=== PATIENT | female | born 1930 | race Caucasian/White ===

== ENCOUNTER 2019-03-06 16:54 | Inpatient (IN) | payer MEDICAID, OTHER ==
[2019-03-06 17:43] LABS: ADD MAN DIFF? NO
[2019-03-06 17:47] LABS: BASOPHILS % 0.2 % (0.0-2.0); HEMATOCRIT 38.4 % (37.0-47.0); HEMOGLOBIN 12.4 g/dl (12.0-16.0); LYMPHOCYTES # 0.9 10^3/ul (0.8-2.9); LYMPHOCYTES % 8.5 % (15.0-51.0); MEAN CORPUSCULAR HEMOGLOBIN 28.4 pg (29.0-33.0); MEAN CORPUSCULAR HGB CONC 32.3 g/dl (32.0-37.0); MEAN CORPUSCULAR VOLUME 88.1 fl (82.0-101.0); MEAN PLATELET VOLUME 9.8 fl (7.4-10.4); MONOCYTE # 0.5 10^3/ul (0.3-0.9); MONOCYTES % 4.4 % (0.0-11.0); NEUTROPHIL # 9.3 10^3/ul (1.6-7.5); NEUTROPHILS % 86.2 % (39.0-77.0); PLATELET COUNT 305 10^3/UL (140-415); RED BLOOD COUNT 4.36 10^6/ul (4.20-5.40); RED CELL DISTRIBUTION WIDTH 14.5 % (11.5-14.5)
[2019-03-06 17:47] LABS: WHITE BLOOD COUNT 10.8 10^3/ul (4.8-10.8)
[2019-03-06] MEDS: LIDOCAINE/MYLANTA 40 ML BTL PO (17:49)
[2019-03-06] MEDS: morphine 2 MG INJ IV (17:50)
[2019-03-06] MEDS: ONDANSETRON 4 MG INJ IV (17:50)
[2019-03-06] MEDS: SOD CHLORIDE 0.9% 500 ML IV (17:56)
[2019-03-06 18:09] LABS: ALANINE AMINOTRANSFERASE 422 IU/L (13-69); ALBUMIN 4.6 g/dl (3.3-4.9); ALBUMIN/GLOBULIN RATIO 1.02; ALKALINE PHOSPHATASE 353 IU/L (42-121); ANION GAP 15 (5-13); BILIRUBIN,INDIRECT 1.1 mg/dl (0-1.1); BLOOD UREA NITROGEN 16 mg/dl (7-20); CALCIUM 9.8 mg/dl (8.4-10.2); CARBON DIOXIDE 25 mmol/L (21-31); CHLORIDE 101 mmol/L (97-110); CREATININE 1.01 mg/dl (0.44-1.00); GLUCOSE 196 mg/dl (70-220); LIPASE 276 U/L (23-300); POTASSIUM 4.9 mmol/L (3.5-5.1); SODIUM 141 mmol/L (135-144); TOTAL PROTEIN 9.1 g/dl (6.1-8.1)
[2019-03-06 18:19] LABS: ASPARTATE AMINO TRANSFERASE 1093 IU/L (15-46)
[2019-03-06] MEDS ORDERED: ACETAMINOPHEN 325 MG TAB PO (19:00)
[2019-03-06] MEDS ORDERED: ONDANSETRON 4 MG INJ IV ×2 (19:00→21:00)
[2019-03-06] MEDS ORDERED: NACL 0.9% 3 ML SYG IV (21:00)
[2019-03-06] MEDS: DEXTROSE 5%-0.45% NACL 1,000 ML IV (22:55)
[2019-03-06] MEDS: PIPER-TAZO 3.375 GM IV (PMX) 100 ML IVPB (22:55)
[2019-03-06] MEDS: FAMOTIDINE 20 MG INJ IV (22:56)
[2019-03-07] MEDS: PIPER-TAZO 3.375 GM IV (PMX) 100 ML IVPB ×3 (05:31→21:10)
[2019-03-07 06:33] LABS: ABNORMAL IP MESSAGE 1; HEMATOCRIT 32.8 % (37.0-47.0); HEMOGLOBIN 10.7 g/dl (12.0-16.0); MEAN CORPUSCULAR HEMOGLOBIN 28.6 pg (29.0-33.0); MEAN CORPUSCULAR HGB CONC 32.6 g/dl (32.0-37.0); MEAN CORPUSCULAR VOLUME 87.7 fl (82.0-101.0); MEAN PLATELET VOLUME 10.3 fl (7.4-10.4); PLATELET COUNT 162 10^3/UL (140-415); RED BLOOD COUNT 3.74 10^6/ul (4.20-5.40); RED CELL DISTRIBUTION WIDTH 14.3 % (11.5-14.5)
[2019-03-07 06:33] LABS: WHITE BLOOD COUNT 13.7 10^3/ul (4.8-10.8)
[2019-03-07 06:41] LABS: ALANINE AMINOTRANSFERASE 380 IU/L (13-69); ALBUMIN 3.4 g/dl (3.3-4.9); ALKALINE PHOSPHATASE 237 IU/L (42-121); ANION GAP 14 (5-13); ASPARTATE AMINO TRANSFERASE 674 IU/L (15-46); BILIRUBIN,INDIRECT 1.4 mg/dl (0-1.1); BLOOD UREA NITROGEN 21 mg/dl (7-20); CALCIUM 8.7 mg/dl (8.4-10.2); CARBON DIOXIDE 25 mmol/L (21-31); CHLORIDE 102 mmol/L (97-110); CREATININE 1.23 mg/dl (0.44-1.00); GLUCOSE 167 mg/dl (70-220); MAGNESIUM 1.9 mg/dl (1.7-2.5); PHOSPHORUS 3.3 mg/dl (2.5-4.9); POTASSIUM 3.1 mmol/L (3.5-5.1); SODIUM 141 mmol/L (135-144); TOTAL PROTEIN 6.8 g/dl (6.1-8.1)
[2019-03-07 06:46] LABS: ADD MAN DIFF? YES; POSITIVE DIFF @See below
[2019-03-07 09:04] LABS: ANISOCYTOSIS 2+ (0-0); BAND NEUTROPHILS #M 5.6 10^3/ul (0.0-0.6); BAND NEUTROPHILS % (M) 41 % (0-4); GIANT THROMBO% (M) 1 % (0-0); LYMPHOCYTES #M 0.8 10^3/ul (0.8-2.9); LYMPHOCYTES % (M) 6 % (15-51); METAMYELOCYTES #M 0.2 10^3/ul (0.0-0.0); METAMYELOCYTES %M 2 % (0-0); MICROCYTOSIS 2+ (0-0); MONOCYTE #M 0.1 10^3/ul (0.3-0.9); MONOCYTES % (M) 1 % (0-11); PLATELET ESTIMATE NORMAL; POLYCHROMASIA 3+ (0-0); SEG NEUT #M 7.6 10^3/ul (1.6-7.5); SEGMENTED NEUTROPHILS (M) % 50 % (39-77)
[2019-03-07] MEDS: DEXTROSE 5%-0.45% NACL 1,000 ML IV ×2 (12:46→21:11)
[2019-03-07] MEDS ORDERED: IOHEXOL 300MG/ML 30 ML BTL (16:26)
[2019-03-07] MEDS: INDOMETHACIN 50 MG SUPP PR (16:30)
[2019-03-07] MEDS ORDERED: INDOMETHACIN 50 MG SUPP PR (17:00)
[2019-03-07] MEDS ORDERED: ETOMIDATE 20 MG INJ (17:40)
[2019-03-07] MEDS ORDERED: SUCCINYLCHOLINE CHLORIDE 100 MG/5 ML SYG IV (17:40)
[2019-03-07] MEDS ORDERED: morphine 10 MG INJ (17:41)
[2019-03-07] MEDS ORDERED: ONDANSETRON 4 MG INJ (17:48)
[2019-03-07] MEDS ORDERED: DEXAMETHASONE 4 MG/ML 5 ML INJ (17:48)
[2019-03-07] MEDS ORDERED: CEFAZOLIN 1 GM INJ (17:50)
[2019-03-07] MEDS ORDERED: ONDANSETRON 4 MG INJ IV (18:30)
[2019-03-07] MEDS ORDERED: DIPHENHYDRAMINE 50 MG INJ IV (18:30)
[2019-03-07] MEDS ORDERED: FENTAnyl 50 MCG/ML VIAL IV ×3 (18:30)
[2019-03-07] MEDS ORDERED: MEPERIDINE 25 MG INJ IV (18:30)
[2019-03-07] MEDS ORDERED: hydrALAzine 20 MG INJ IV (18:30)
[2019-03-07] MEDS ORDERED: HYDROmorphONE 1 MG/5 ML IV SYRINGE IV ×3 (18:30)
[2019-03-07] MEDS ORDERED: LABETALOL HCL 20MG INJ IV (18:30)
[2019-03-07] MEDS ORDERED: OXYCODONE/ACETAMINOPHEN (5/325) TAB PO ×2 (18:30)
[2019-03-07] MEDS ORDERED: TRIMETHOBENZAMIDE 100 MG/ML VIAL IM (18:30)
[2019-03-07] MEDS ORDERED: ALBUTEROL 0.083% (NEB) 2.5 MG/3 ML AMP HHN (18:30)
[2019-03-07] MEDS ORDERED: IPRATROPIUM (NEB) 0.5 MG/2.5 ML AMP HHN (18:30)
[2019-03-07] MEDS ORDERED: MIDAZOLAM 1 MG/ML 2 ML INJ IV (18:30)
[2019-03-07] MEDS ORDERED: EPHEDrine 25 MG/5 ML SYG IV (18:30)
[2019-03-07] MEDS: FAMOTIDINE 20 MG INJ IV (21:11)
[2019-03-07] MEDS: HEPARIN 5,000 UNIT/1 ML VIAL SC (21:20)
[2019-03-08] MEDS: PIPER-TAZO 3.375 GM IV (PMX) 100 ML IVPB ×3 (05:41→21:26)
[2019-03-08] MEDS: DEXTROSE 5%-0.45% NACL 1,000 ML IV ×3 (05:46→21:27)
[2019-03-08] MEDS: HEPARIN 5,000 UNIT/1 ML VIAL SC ×2 (08:55→20:56)
[2019-03-08] MEDS: FAMOTIDINE 20 MG INJ IV (20:54)
[2019-03-09 01:49] LABS: ANION GAP 11 (5-13); BLOOD UREA NITROGEN 34 mg/dl (7-20); CALCIUM 7.9 mg/dl (8.4-10.2); CARBON DIOXIDE 22 mmol/L (21-31); CHLORIDE 108 mmol/L (97-110); CREATININE 1.68 mg/dl (0.44-1.00); GLUCOSE 184 mg/dl (70-220); SODIUM 141 mmol/L (135-144)
[2019-03-09] MEDS: PIPER-TAZO 3.375 GM IV (PMX) 100 ML IVPB ×3 (06:01→21:46)
[2019-03-09 06:17] LABS: ADD MAN DIFF? NO
[2019-03-09 06:23] LABS: BASOPHILS % 0.1 % (0.0-2.0); HEMATOCRIT 28.8 % (37.0-47.0); HEMOGLOBIN 9.5 g/dl (12.0-16.0); LYMPHOCYTES # 1.1 10^3/ul (0.8-2.9); LYMPHOCYTES % 9.3 % (15.0-51.0); MEAN CORPUSCULAR HEMOGLOBIN 28.8 pg (29.0-33.0); MEAN CORPUSCULAR VOLUME 87.3 fl (82.0-101.0); MEAN PLATELET VOLUME 11.5 fl (7.4-10.4); MONOCYTE # 0.4 10^3/ul (0.3-0.9); MONOCYTES % 2.9 % (0.0-11.0); NEUTROPHIL # 10.1 10^3/ul (1.6-7.5); NEUTROPHILS % 84.4 % (39.0-77.0); PLATELET COUNT 117 10^3/UL (140-415); RED CELL DISTRIBUTION WIDTH 14.8 % (11.5-14.5)
[2019-03-09 07:03] LABS: ANION GAP 9 (5-13); BLOOD UREA NITROGEN 33 mg/dl (7-20); CALCIUM 7.9 mg/dl (8.4-10.2); CARBON DIOXIDE 23 mmol/L (21-31); CHLORIDE 109 mmol/L (97-110); CREATININE 1.78 mg/dl (0.44-1.00); GLUCOSE 179 mg/dl (70-220); POTASSIUM 3.8 mmol/L (3.5-5.1); SODIUM 141 mmol/L (135-144)
[2019-03-09] MEDS: HEPARIN 5,000 UNIT/1 ML VIAL SC ×2 (07:44→20:40)
[2019-03-09 10:27] LABS: ALANINE AMINOTRANSFERASE 128 IU/L (13-69); ALKALINE PHOSPHATASE 135 IU/L (42-121); ASPARTATE AMINO TRANSFERASE 69 IU/L (15-46); BILIRUBIN,INDIRECT 0.5 mg/dl (0-1.1); BILIRUBIN,TOTAL 0.5 mg/dl (0.2-1.3)
[2019-03-09 10:28] LABS: ALBUMIN 2.9 g/dl (3.3-4.9); TOTAL PROTEIN 5.7 g/dl (6.1-8.1)
[2019-03-09] MEDS: DEXTROSE 5%-0.45% NACL 1,000 ML IV ×2 (11:30→23:24)
[2019-03-09] MEDS: FAMOTIDINE 20 MG INJ IV (20:37)
[2019-03-10] MEDS: PIPER-TAZO 3.375 GM IV (PMX) 100 ML IVPB (06:00)
[2019-03-10 06:48] LABS: ADD MAN DIFF? NO
[2019-03-10 06:59] LABS: BASOPHILS % 0.2 % (0.0-2.0); HEMATOCRIT 28.5 % (37.0-47.0); HEMOGLOBIN 9.4 g/dl (12.0-16.0); LYMPHOCYTES # 1.6 10^3/ul (0.8-2.9); LYMPHOCYTES % 11.1 % (15.0-51.0); MEAN CORPUSCULAR HEMOGLOBIN 28.7 pg (29.0-33.0); MEAN CORPUSCULAR VOLUME 87.2 fl (82.0-101.0); MEAN PLATELET VOLUME 11.9 fl (7.4-10.4); MONOCYTE # 0.4 10^3/ul (0.3-0.9); MONOCYTES % 2.9 % (0.0-11.0); NEUTROPHIL # 11.9 10^3/ul (1.6-7.5); NEUTROPHILS % 84.6 % (39.0-77.0); NUCLEATED RED BLOOD CELLS% 0.1 /100WBC (0.0-0.0); PLATELET COUNT 132 10^3/UL (140-415); RED BLOOD COUNT 3.27 10^6/ul (4.20-5.40)
[2019-03-10 06:59] LABS: WHITE BLOOD COUNT 14.1 10^3/ul (4.8-10.8)
[2019-03-10 07:43] LABS: ANION GAP 9 (5-13); BLOOD UREA NITROGEN 33 mg/dl (7-20); CALCIUM 7.9 mg/dl (8.4-10.2); CARBON DIOXIDE 21 mmol/L (21-31); CHLORIDE 110 mmol/L (97-110); CREATININE 1.69 mg/dl (0.44-1.00); GLUCOSE 134 mg/dl (70-220); POTASSIUM 3.5 mmol/L (3.5-5.1); SODIUM 140 mmol/L (135-144)
[2019-03-10] MEDS: HEPARIN 5,000 UNIT/1 ML VIAL SC ×2 (08:26→20:47)
[2019-03-10 11:58] LABS: ADD UMIC YES; UR ASCORBIC ACID NEGATIVE (NEGATIVE); UR BILIRUBIN (Dip) NEGATIVE (NEGATIVE); UR BLOOD (Dip) 2+ mg/dL (NEGATIVE); UR CLARITY SLIGHTLY CLOUDY (CLEAR); UR COLOR YELLOW (YELLOW); UR GLUCOSE (Dip) NEGATIVE (NEGATIVE); UR KETONES (Dip) NEGATIVE (NEGATIVE); UR LEUKOCYTE ESTERASE (Dip) NEGATIVE Leu/ul (NEGATIVE); UR MUCUS FEW /HPF (NONE SEEN); UR NITRITE (Dip) NEGATIVE (NEGATIVE); UR RBC 0 /HPF (0-5); UR SPECIFIC GRAVITY (Dip) 1.012 (1.003-1.030); UR SQUAMOUS EPITHELIAL CELL MODERATE /HPF (FEW); UR TOTAL PROTEIN (Dip) 1+ mg/dl (NEGATIVE); UR UROBILINOGEN (Dip) NEGATIVE (NEGATIVE); UR WBC 2 /HPF (0-5)
[2019-03-10 12:15] LABS: SODIUM,URINE RANDOM 80 mmol/L (30-90)
[2019-03-10 12:15] LABS: CREATININE,URINE RANDOM 33.62 mg/dl (20-320)
[2019-03-10] MEDS: DEXTROSE 5%-0.45% NACL 1,000 ML IV (12:41)
[2019-03-10 13:38] LABS: ADD UMIC YES; UR ASCORBIC ACID NEGATIVE (NEGATIVE); UR BACTERIA FEW /HPF (NONE SEEN); UR BILIRUBIN (Dip) NEGATIVE (NEGATIVE); UR BLOOD (Dip) 1+ mg/dL (NEGATIVE); UR CLARITY CLEAR (CLEAR); UR COLOR YELLOW (YELLOW); UR GLUCOSE (Dip) NEGATIVE (NEGATIVE); UR KETONES (Dip) NEGATIVE (NEGATIVE); UR LEUKOCYTE ESTERASE (Dip) NEGATIVE Leu/ul (NEGATIVE); UR NITRITE (Dip) NEGATIVE (NEGATIVE); UR RBC 1 /HPF (0-5); UR SPECIFIC GRAVITY (Dip) 1.009 (1.003-1.030); UR SQUAMOUS EPITHELIAL CELL FEW /HPF (FEW); UR TOTAL PROTEIN (Dip) 1+ mg/dl (NEGATIVE); UR UROBILINOGEN (Dip) NEGATIVE (NEGATIVE); UR WBC 2 /HPF (0-5)
[2019-03-10] MEDS ORDERED: ACETAMINOPHEN 325 MG TAB PO (14:00)
[2019-03-10] MEDS: ACETAMINOPHEN 325 MG TAB PO (14:10)
[2019-03-10] MEDS: PIPER-TAZO 2.25 GM/NS 50 ML IVPB ×2 (14:55→22:03)
[2019-03-10] MEDS: FAMOTIDINE 20 MG INJ IV (20:45)
[2019-03-11] MEDS: DEXTROSE 5%-0.45% NACL 1,000 ML IV ×3 (00:55→12:27)
[2019-03-11 05:21] LABS: ADD MAN DIFF? NO
[2019-03-11 05:31] LABS: BASOPHILS % 0.3 % (0.0-2.0); EOSINOPHILS # 0.1 10^3/ul (0.0-0.5); HEMATOCRIT 30.4 % (37.0-47.0); HEMOGLOBIN 10.1 g/dl (12.0-16.0); LYMPHOCYTES # 1.9 10^3/ul (0.8-2.9); LYMPHOCYTES % 16.2 % (15.0-51.0); MEAN CORPUSCULAR HEMOGLOBIN 28.5 pg (29.0-33.0); MEAN CORPUSCULAR HGB CONC 33.2 g/dl (32.0-37.0); MEAN CORPUSCULAR VOLUME 85.9 fl (82.0-101.0); MEAN PLATELET VOLUME 11.4 fl (7.4-10.4); MONOCYTE # 0.7 10^3/ul (0.3-0.9); MONOCYTES % 5.8 % (0.0-11.0); NEUTROPHILS % 75.2 % (39.0-77.0); NUCLEATED RED BLOOD CELLS% 0.3 /100WBC (0.0-0.0); PLATELET COUNT 152 10^3/UL (140-415); RED BLOOD COUNT 3.54 10^6/ul (4.20-5.40); RED CELL DISTRIBUTION WIDTH 14.8 % (11.5-14.5)
[2019-03-11 05:31] LABS: WHITE BLOOD COUNT 11.9 10^3/ul (4.8-10.8)
[2019-03-11 05:54] LABS: ANION GAP 10 (5-13); BLOOD UREA NITROGEN 26 mg/dl (7-20); CALCIUM 8.1 mg/dl (8.4-10.2); CARBON DIOXIDE 22 mmol/L (21-31); CHLORIDE 109 mmol/L (97-110); CREATININE 1.74 mg/dl (0.44-1.00); GLUCOSE 86 mg/dl (70-220); SODIUM 141 mmol/L (135-144)
[2019-03-11 05:59] LABS: POTASSIUM 2.9 mmol/L (3.5-5.1)
[2019-03-11] MEDS: PIPER-TAZO 2.25 GM/NS 50 ML IVPB ×3 (06:08→22:10)
[2019-03-11] MEDS: POTASSIUM CHLORIDE 100 ML IVPB ×3 (07:41→12:27)
[2019-03-11] MEDS: HEPARIN 5,000 UNIT/1 ML VIAL SC ×2 (07:42→21:04)
[2019-03-11] MEDS: ALBUTEROL/IPRATROPIUM (NEB) 3 ML AMP HHN (13:45)
[2019-03-11] MEDS ORDERED: PROPOFOL 20 ML (14:57)
[2019-03-11] MEDS ORDERED: ROCURONIUM 50 MG INJ (14:57)
[2019-03-11] MEDS ORDERED: CEFAZOLIN 1 GM INJ (14:57)
[2019-03-11] MEDS ORDERED: ROPIVACAINE 0.2% 20 ML VIAL (14:58)
[2019-03-11] MEDS ORDERED: FENTAnyl 50 MCG/ML VIAL (14:58)
[2019-03-11] MEDS ORDERED: LIDOCAINE 1% (MPF) 30 ML INJ (15:08)
[2019-03-11] MEDS ORDERED: BUPIVACAINE 0.25%/EPI (SDV) 10 ML INJ (15:08)
[2019-03-11 15:51] LABS: CREATININE, RANDOM URINE 30 mg/dL (20-275); MICROALBUMIN 6.1 mg/dL; MICROALBUMIN/CREATININE RATIO 203 (<30)
[2019-03-11] MEDS ORDERED: hydrALAzine 20 MG INJ (16:18)
[2019-03-11] MEDS ORDERED: ONDANSETRON 4 MG INJ (16:28)
[2019-03-11] MEDS ORDERED: SUGAMMADEX SODIUM 200 MG/2 ML VIAL IV (16:28)
[2019-03-11] MEDS ORDERED: DEXAMETHASONE 4 MG/ML 5 ML INJ (16:28)
[2019-03-11] MEDS ORDERED: LABETALOL HCL 20MG INJ (16:29)
[2019-03-11] MEDS ORDERED: DIPHENHYDRAMINE 50 MG INJ IV (16:30)
[2019-03-11] MEDS ORDERED: HYDROmorphONE 1 MG/5 ML IV SYRINGE IV ×2 (16:30)
[2019-03-11] MEDS ORDERED: IPRATROPIUM (NEB) 0.5 MG/2.5 ML AMP HHN (16:30)
[2019-03-11] MEDS ORDERED: LABETALOL HCL 20MG INJ IV (16:30)
[2019-03-11] MEDS ORDERED: OXYCODONE/ACETAMINOPHEN (5/325) TAB PO (16:30)
[2019-03-11] MEDS ORDERED: MEPERIDINE 25 MG INJ IV (16:30)
[2019-03-11] MEDS ORDERED: FENTAnyl 50 MCG/ML VIAL IV ×2 (16:30)
[2019-03-11] MEDS ORDERED: ALBUTEROL 0.083% (NEB) 2.5 MG/3 ML AMP HHN (16:30)
[2019-03-11] MEDS ORDERED: hydrALAzine 20 MG INJ IV (16:30)
[2019-03-11] MEDS ORDERED: ONDANSETRON 4 MG INJ IV ×2 (16:30→17:30)
[2019-03-11] MEDS ORDERED: EPHEDrine 25 MG/5 ML SYG IV (16:30)
[2019-03-11] MEDS: D5W-0.45 NACL + KCL 20 MEQ 1,000 ML IV (18:29)
[2019-03-11] MEDS: morphine 2 MG INJ IV (18:38)
[2019-03-11] MEDS: FAMOTIDINE 20 MG INJ IV (21:03)
[2019-03-11] MEDS: HYDROmorphONE 0.5 MG/0.5 ML SYG IV (22:09)
[2019-03-12] MEDS: D5W-0.45 NACL + KCL 20 MEQ 1,000 ML IV ×2 (03:29→05:08)
[2019-03-12] MEDS: PIPER-TAZO 2.25 GM/NS 50 ML IVPB ×3 (06:04→21:50)
[2019-03-12 07:26] LABS: ADD MAN DIFF? NO
[2019-03-12 07:32] LABS: WHITE BLOOD COUNT 12.3 10^3/ul (4.8-10.8)
[2019-03-12 07:32] LABS: BASOPHILS % 0.2 % (0.0-2.0); HEMATOCRIT 29.2 % (37.0-47.0); HEMOGLOBIN 9.3 g/dl (12.0-16.0); LYMPHOCYTES % 8.3 % (15.0-51.0); MEAN CORPUSCULAR HEMOGLOBIN 28.1 pg (29.0-33.0); MEAN CORPUSCULAR HGB CONC 31.8 g/dl (32.0-37.0); MEAN CORPUSCULAR VOLUME 88.2 fl (82.0-101.0); MONOCYTE # 0.3 10^3/ul (0.3-0.9); MONOCYTES % 2.3 % (0.0-11.0); NEUTROPHIL # 10.6 10^3/ul (1.6-7.5); PLATELET COUNT 200 10^3/UL (140-415); RED BLOOD COUNT 3.31 10^6/ul (4.20-5.40); RED CELL DISTRIBUTION WIDTH 15.6 % (11.5-14.5)
[2019-03-12 08:00] LABS: PHOSPHORUS 3.2 mg/dl (2.5-4.9)
[2019-03-12 08:00] LABS: MAGNESIUM 2.1 mg/dl (1.7-2.5)
[2019-03-12 08:04] LABS: ALANINE AMINOTRANSFERASE 53 IU/L (13-69); ALBUMIN 2.8 g/dl (3.3-4.9); ALBUMIN/GLOBULIN RATIO 0.87; ALKALINE PHOSPHATASE 110 IU/L (42-121); ANION GAP 8 (5-13); ASPARTATE AMINO TRANSFERASE 62 IU/L (15-46); BILIRUBIN,INDIRECT 0.5 mg/dl (0-1.1); BILIRUBIN,TOTAL 0.5 mg/dl (0.2-1.3); BLOOD UREA NITROGEN 18 mg/dl (7-20); CALCIUM 7.2 mg/dl (8.4-10.2); CARBON DIOXIDE 17 mmol/L (21-31); CHLORIDE 114 mmol/L (97-110); CREATININE 1.33 mg/dl (0.44-1.00); GLUCOSE 163 mg/dl (70-220); POTASSIUM 4.5 mmol/L (3.5-5.1); SODIUM 139 mmol/L (135-144)
[2019-03-12] MEDS: HEPARIN 5,000 UNIT/1 ML VIAL SC ×2 (08:54→21:53)
[2019-03-12] MEDS: FAMOTIDINE 20 MG INJ IV (21:50)
[2019-03-13 05:24] LABS: ADD MAN DIFF? NO
[2019-03-13 05:33] LABS: BASOPHILS % 0.2 % (0.0-2.0); EOSINOPHILS % 0.1 % (0.0-7.0); HEMATOCRIT 25.5 % (37.0-47.0); HEMOGLOBIN 8.3 g/dl (12.0-16.0); LYMPHOCYTES # 1.2 10^3/ul (0.8-2.9); LYMPHOCYTES % 10.6 % (15.0-51.0); MEAN CORPUSCULAR HEMOGLOBIN 28.5 pg (29.0-33.0); MEAN CORPUSCULAR HGB CONC 32.5 g/dl (32.0-37.0); MEAN CORPUSCULAR VOLUME 87.6 fl (82.0-101.0); MEAN PLATELET VOLUME 10.7 fl (7.4-10.4); MONOCYTE # 0.9 10^3/ul (0.3-0.9); MONOCYTES % 7.6 % (0.0-11.0); NEUTROPHIL # 9.1 10^3/ul (1.6-7.5); NEUTROPHILS % 79.7 % (39.0-77.0); NUCLEATED RED BLOOD CELLS% 0.3 /100WBC (0.0-0.0); PLATELET COUNT 203 10^3/UL (140-415); RED BLOOD COUNT 2.91 10^6/ul (4.20-5.40); RED CELL DISTRIBUTION WIDTH 15.1 % (11.5-14.5)
[2019-03-13 05:33] LABS: WHITE BLOOD COUNT 11.4 10^3/ul (4.8-10.8)
[2019-03-13] MEDS: PIPER-TAZO 2.25 GM/NS 50 ML IVPB ×2 (05:37→13:47)
[2019-03-13 06:29] LABS: ALANINE AMINOTRANSFERASE 37 IU/L (13-69); ALBUMIN 2.8 g/dl (3.3-4.9); ALKALINE PHOSPHATASE 97 IU/L (42-121); ANION GAP 7 (5-13); ASPARTATE AMINO TRANSFERASE 36 IU/L (15-46); BILIRUBIN,INDIRECT 0.5 mg/dl (0-1.1); BILIRUBIN,TOTAL 0.5 mg/dl (0.2-1.3); BLOOD UREA NITROGEN 17 mg/dl (7-20); CALCIUM 7.8 mg/dl (8.4-10.2); CARBON DIOXIDE 19 mmol/L (21-31); CHLORIDE 114 mmol/L (97-110); CREATININE 1.46 mg/dl (0.44-1.00); GLUCOSE 92 mg/dl (70-220); POTASSIUM 4.3 mmol/L (3.5-5.1); SODIUM 140 mmol/L (135-144); TOTAL PROTEIN 5.6 g/dl (6.1-8.1)
[2019-03-13 06:38] LABS: PHOSPHORUS 2.6 mg/dl (2.5-4.9)
[2019-03-13 07:39] LABS: MAGNESIUM 2.2 mg/dl (1.7-2.5)
[2019-03-13] MEDS: HEPARIN 5,000 UNIT/1 ML VIAL SC (08:44)
== END 2019-03-13 16:55 | disposition home or self-care (01) | DRG 418 ==
LOC: E/R 16:54 → 2NE 18:42
PROC: 0F798DZ Dilation of Common Bile Duct with Intraluminal Device, Via Natural or Artificial Opening Endoscopic (ICD-10-PCS; 2019-03-07 17:00)
PROC: 0FC98ZZ Extirpation of Matter from Common Bile Duct, Via Natural or Artificial Opening Endoscopic (ICD-10-PCS; 2019-03-07 17:00)
PROC: BF10YZZ Fluoroscopy of Bile Ducts using Other Contrast (ICD-10-PCS; 2019-03-07 17:00)
PROC: 0FT44ZZ Resection of Gallbladder, Percutaneous Endoscopic Approach (ICD-10-PCS; principal; 2019-03-07 17:35)
DX: K80.62 Calculus of gallbladder and bile duct with acute cholecystitis without obstruction (principal); E44.0 Moderate protein-calorie malnutrition; Z68.1 Body mass index [BMI] 19.9 or less, adult; N17.9 Acute kidney failure, unspecified; E87.6 Hypokalemia; I12.9 Hypertensive chronic kidney disease with stage 1 through stage 4 chronic kidney disease, or unspecified chronic kidney disease; N18.9 Chronic kidney disease, unspecified; D64.9 Anemia, unspecified
CPT/HCPCS: 36415; 71045; 74181; 74330; 76705; 80048; 80053; 80076; 81001; 81003; 82043; 82962; 83690; 83735; 84100; 84155; 84300; 85025; 87040-91; 87086; 88304; 93005; 94664; 96374; 96375; 99285-25